=== PATIENT | female | born 1960 | race African-American/Black ===

== ENCOUNTER 2017-02-27 23:17 | Emergency (ER) | payer BC ==
[~2017-02-27 23:17] MED LIST: AMB10 PO; APRES10B PO; CEFADROXIL1 GM PO; COMBIVENT RESPIM4 GM INH; COUMADIN10 MG PO; D100 PO; DEPAKOT250 PO; IBU400 PO; IBU800 PO; ISORDTAB5 PO; KADIAN80 MG PO; KDUR20 PO; KEPPRA XR500 MG PO; KEPPRA1000 MG PO; KLOR-CON 1010 MEQ PO; L80 PO; LOVENOX120 SC; MEG40 PO; NEUR100 PO; NEUR300 PO; OXYCOD PO; PRILO PO; PROGESTERONE; PROVHFA INH; RANITIDINE300 MG PO; XANAX1 MG PO
[2017-02-28 00:15] LABS: BASOPHILS 0.2 %; BASOPHILS ABSOLUTE 0.03 10/3/uL (0.0-0.16); EOSINOPHILS 1.5 %; ER CBC TAT 0 Hrs 00 Mins; HEMATOCRIT 44.3 % (36.0-48.0); HEMOGLOBIN 14.2 g/dL (12.0-16.0); IMMATURE GRANULOCYTES 0.5 %; IMMATURE GRANULOCYTES ABSOLUTE 0.07 10/3/uL (0.0-0.11); LYMPHOCYTES 24.8 %; LYMPHOCYTES ABSOLUTE 3.34 10/3/uL (0.67-4.30); MEAN CORPUS HGB CONC 32.1 g/dL (32.0-36.0); MEAN CORPUSCULAR VOLUME 93.5 fL (80-100); MONOCYTES 5.6 %; MONOCYTES ABSOLUTE 0.75 10/3/uL (0.21-1.20); NEUTROPHILS 67.4 %; NEUTROPHILS ABSOLUTE 9.07 10/3/uL (2.02-8.40); PLATELET COUNT 274 10/3/uL (150-400); RBC DISTRIBUTION WIDTH 15.3 % (12.0-16.0); RED CELL COUNT 4.74 10/6/uL (4.0-5.6); WHITE BLOOD CELLS 13.5 10/3/uL (4.5-10.5)
[2017-02-28 00:16] LABS: MANUAL DIFF NO %
[2017-02-28 00:21] LABS: PARTIAL THROMBO TIME 28.1 SEC (22.5-37.2); PROTIME (NOT ORD) 13.5 SEC (12.0-14.5)
[2017-02-28 00:32] LABS: CHEST PAIN PROFILE TAT 0 Hrs 00 Mins; CHLORIDE, SERUM 109 MMOL/L (96-112); CO2 (CARBON DIOXIDE) 29 MMOL/L (24-34); CREATININE 1.35 MG/DL (0.55-1.02); GFR AFRICAN AMERICAN 51 ML/MIN (>=60); GFR NON AFRICAN AMERICAN 44 ML/MIN (>=60); GLUCOSE, SERUM 99 MG/DL (60-99); POTASSIUM, SERUM 3.9 MMOL/L (3.5-5.3); SODIUM, SERUM 142 MMOL/L (135-148); TROPONIN I <0.02 NG/ML (<0.05)
[2017-02-28 00:34] LABS: BUN (BLOOD UREA NITROGEN) 15 MG/DL (6-23); CALCIUM, SERUM 8.8 MG/DL (8.5-10.4)
[2017-02-28 10:29] LABS: BE (BASE EXCESS) -2.9 MEQ/L (0 +/- 2.5); CARBOXYHEMOGLOBIN 4.1 % (0-3); HCO3 (ACTUAL BICARBONATE) 21.3 MEQ/L (23-27); HEMOBLOGIN CONTENT 14.1 G/DL (12-16); INSTRUMENT SERIAL # 8087; METHEMOGLOBIN 0.2 % (0-3); O2 CONTENT 17.9 VOL% (18-24); PCO2 (CO2 TENSION) 36 MMHG (35-45); PO2 (O2 TENSION) 69 MMHG (79-93); SAMPLE Arterial
== END 2017-02-28 03:41 | disposition home or self-care (01) ==
LOC: ER 23:17
PROVIDERS: Nurse Practitioner Acute Care; Specialist
DX: E66.01 Morbid (severe) obesity due to excess calories (principal); I50.9 Heart failure, unspecified; Z86.73 Personal history of transient ischemic attack (TIA), and cerebral infarction without residual deficits; Z79.899 Other long term (current) drug therapy
CPT/HCPCS: 36600; 71010; 80048; 82805; 83735; 83880; 84484; 85025; 85610; 85730; 93005; 99285